=== PATIENT | male | born 1975 | race Caucasian/White ===

== ENCOUNTER 2018-01-02 08:01 | Emergency (ER) | payer BC, OTHER ==
[~2018-01-02] VITALS: Ht 182.9 cm; Wt 100.2 kg
[2018-01-02 08:05] VITALS: TEMP 36.5; Ht 182.9 cm; Wt 100.2 kg
[2018-01-02] MEDS ORDERED: LIDO/EPINEPHRINE/SOD BICARB 20 ML VIAL INFIL ONE (09:00)
--- NOTE | 2018-01-02 09:51 | EMERGENCY ROOM VISIT NOTE ---
ED Visit Note First contact with patient: 08:30 CHIEF COMPLAINT: Rectal pain 1 day HISTORY OF PRESENT ILLNESS: Patient is an otherwise healthy 42-year-old male presents emergency department for evaluation of rectal pain. He noticed a swollen, slightly tender area externally on the rectum last evening, states that it doubled in size overnight while he was sleeping and it is now more painful. There has been no injury to the area and no drainage. He reports his last bowel movement was about 24 hours ago, he is urinating without difficulty. He has had some intermittent bright red blood with wiping, but no prior rectal conditions that required attention. REVIEW OF SYSTEMS: Review of systems as per HPI. All other systems reviewed were negative. At least 6 systems reviewed. PMH: Electronic medical records are reviewed and summarized as above/below. See Problem List. SOCIAL HISTORY: Patient lives at home with his . Employed. Former smoker. PHYSICAL EXAM: Vital Signs: Reviewed Nurse's notes. CONSTITUTIONAL: Patient is a well-appearing 42-year-old male who is awake and alert and in no acute distress. RECTAL: Examination of the rectal area notes a roughly 1 x 3 cm tender, discolored thrombosed hemorrhoid. There are a few other smaller external hemorrhoids that are nontender. There is no erythema or fluctuance to suspect abscess. BRITTNEE not performed. EMERGENCY DEPARTMENT COURSE: The patient was seen and examined as above. He has developed a fairly acute thrombosed external hemorrhoid. Treatment options were discussed with him, but given his presentation I felt that I&D was the most appropriate course of action. Treatment including rectal suppositories and stool softeners was also discussed, however the patient agreed to proceed with I&D. Procedure was performed as noted below, with success and good relief of the patient's discomfort. Absorbent dressing was applied and patient was instructed on local wound care measures. He is previously established with Dr. Edmond of general surgery and was encouraged to follow-up with him for further care and evaluation of his hemorrhoids should there be any need for any definitive intervention. Patient expressed understanding of this and was agreeable. He was discharged home with his in good condition. Medication reconciliation: I attest that I have personally reviewed the patient' s current medication list. Blood pressure screening : Patient was found to have normal blood pressure on screening and does not require follow-up. PROCEDURE NOTE: Incision & Drainage Indication: Thrombosed Hemorrhoid. Location: Right Rectal Area Verbal consent was obtained after the risks and benefits were explained, including but not limited to bleeding, scarring, infection, pain, and bone/joint /nerve damage. At this time, the risks of the procedure are less than the risks of NOT performing the procedure. A time out was taken and the correct patient and site identified. The skin was prepped with betadine and a field set. The wound was anesthetized with 1% buffered lidocaine with epinephrine. The hemorrhoid was entered with a number 11 blade and a small opening was ellipsed out. A dime-sized clot was expelled. Hemorrhoid was palpated, and decompressed fully. There was still some bloody drainage that was controlled. Copious irrigation was performed using normal saline. Absorbant dressing applied. Detailed wound care instructions reviewed with the patient. No complications and the patient tolerated the procedure well. Problem List Surgical Problems: (1) H/O vasectomy Status: Resolved Current/Historical Medications No Active Prescriptions or Reported Meds Allergies Coded Allergies: Penicillins (Verified Allergy, Mild, Hives, 01/02/18) Amoxicillin (Unverified Adverse Reaction, Unknown, hives, 01/02/18) Uncoded Allergies: BEES (Allergy, Severe, ANAPHYLAXIS, 06/02/16) Vital Signs Date Time Temp Pulse Resp B/P (MAP) Pulse Ox O2 Delivery O2 Flow Rate FiO2 01/02/18 10:00 54 18 111/61 94 Room Air 01/02/18 08:05 36.5 61 20 118/75 96 Room Air Departure Information Impression Primary Impression: Thrombosed hemorrhoids Prescriptions No Active Prescriptions or Reported Meds Referrals Xavier Mckeon M.D. (PCP) Patient Instructions My [facility] Additional Instructions Colace 100mg: Take one twice daily as needed for hard stools or constipation. This is available over the counter. You may eat a regular high fiber diet, without restrictions. Cereals, fruits and vegetables are a good source of fiber. Increase your fluid intake. Continue current medications. Ibuprofen(Motrin, Advil) may be used for fever or pain. Use 600mg every six hours as needed. Take with food. Avoid using more than 2400mg in a 24 hour period. Do not use 2400mg per day for more than three consecutive days without physician direction. Prolonged inappropriate use can lead to stomach upset or ulcers. (AND/OR) Acetaminophen(Tylenol) may be used for fever or pain. Use 1000mg every six hours as needed. Avoid using more than 3000mg in a 24 hour period. Dressing changes daily or more often if it becomes saturated or soiled. May shower and rinse the area frequently with warm water for the next several days. Follow up with your PCP or general surgery this week for recheck, and to discuss any need for definitive management of your hemorrhoids.
[2018-01-02 10:00] VITALS: BP 111/61; PULSE 54; O2SAT 94
== END 2018-01-02 10:09 | disposition home or self-care (01) ==
LOC: C.EDB 08:04
DX: K64.5 Perianal venous thrombosis (principal); Z87.891 Personal history of nicotine dependence; Z88.0 Allergy status to penicillin; Z91.030 Bee allergy status